=== PATIENT | female | born 2005 | race Two or more races ===

== ENCOUNTER 2024-04-13 14:12 | Outpatient (CLI) | payer MEDICAID, SELFPAY | END 2024-04-13 14:13 | disposition home or self-care (01) | LOC: NFLDREF 04-14 08:04 | PROVIDERS: Visit Provider Nurse Practitioner Family | DX: N89.8 Other specified noninflammatory disorders of vagina (principal); B37.31 Acute candidiasis of vulva and vagina; R82.90 Unspecified abnormal findings in urine | CPT/HCPCS: 87086 ==

== ENCOUNTER 2024-05-06 16:15 | Outpatient (CLI) | payer MEDICAID, SELFPAY | END 2024-05-06 16:16 | disposition home or self-care (01) | LOC: NFLDUCREF 16:21 | PROVIDERS: Visit Provider Nurse Practitioner Family | DX: R30.0 Dysuria (principal) | CPT/HCPCS: 87086 ==

== ENCOUNTER 2024-08-27 11:42 | Outpatient (CLI) | payer OTHER, SELFPAY | END 2024-08-27 11:43 | disposition home or self-care (01) | PROVIDERS: Visit Provider Registered Nurse | DX: R07.89 Other chest pain (principal); D64.9 Anemia, unspecified; R53.83 Other fatigue | CPT/HCPCS: 82306; 82728; 83020; 83021; 83540; 83550; 85660 ==